=== PATIENT | female | born 1985 | race Caucasian/White ===

== ENCOUNTER 2018-09-24 21:01 | Emergency (ER) | payer BC ==
[~2018-09-24] VITALS: Ht 154.9 cm; Wt 77.4 kg
[~2018-09-24 21:01] MED LIST: HYDR-4011 PO; MAG-19 PO; OMEP20CA16 PO; ONDA4TAB14 PO
[2018-09-24 21:07] VITALS: Ht 154.9 cm; Wt 77.4 kg
[2018-09-24] MEDS ORDERED: ONDANSETRON 4 MG INJ IV STA (21:45)
[2018-09-24] MEDS ORDERED: KETOROLAC 15 MG INJ IV STA (21:45)
--- NOTE | 2018-09-24 21:50 | ERD ---
ER Documentation Chief Complaint Chief Complaint L SIDED AP X'S 2 DAYS HPI Patient is a 33-year-old female with past medical history of cholecystitis with cholecystectomy presenting to the emergency department with complaints of left flank and left upper quadrant pain which she describes as stabbing for the past 1 week. The pain has worsened over the past 1 day. She states the pain is intermittent and 9/10 in severity currently. She did have 2 episodes of diarrhea 2 days ago but this is resolved. She denies any current nausea, vomiting, diarrhea, fevers, dysuria, hematuria, or other symptoms at this time. She states she has never had these symptoms in the past. ROS All systems reviewed and are negative except as per history of present illness. Medications Home Meds Active Scripts Naproxen* (Naprosyn*) 500 Mg Tablet, 500 MG PO BID PRN for PAIN AND/OR INFLAMMATION, #30 TAB Prov:TONIE BARRETO PA-C 09/24/18 Magaldrate/Simethicone* (Mylanta*) 355 Ml Susp, 30 ML PO QID PRN for GASTROINTESTINAL UPSET, #1 BOTTLE Prov:ISAURO CORRALES NP 12/01/15 Omeprazole* (Omeprazole*) 20 Mg Capsule.dr, 20 MG PO DAILY, #30 Prov:ISAURO CORRALES NP 12/01/15 Ondansetron (Ondansetron Odt) 4 Mg Tab.rapdis, 4 MG PO Q8 PRN for NAUSEA AND/OR VOMITING, #30 TAB Prov:ISAURO CORRALES NP 12/01/15 Hydrocodone/Acetaminophen ([place] 5-325 Tablet) 1 Each Tablet, 1 TAB PO Q6H PRN for PAIN, #20 TAB Prov:ISAURO CORRALES NP 12/01/15 Reported Medications [none] Unknown Strength No Conflict Check 12/01/15 Allergies Allergies: Coded Allergies: No Known Allergy (Verified , 05/04/13) PMhx/Soc Medical and Surgical Hx: pt denies Medical Hx Anesthesia Reaction: No Hx Neurological Disorder: No Hx Respiratory Disorders: No Hx Cardiac Disorders: No Hx Psychiatric Problems: No Hx Miscellaneous Medical Probl: No Hx Alcohol Use: No Hx Substance Use: No Hx Tobacco Use: No FmHx Family History: No diabetes Physical Exam Vitals Vital Signs Date Temp Pulse Resp B/P (MAP) Pulse Ox O2 O2 Flow FiO2 Time Delivery Rate 09/25/18 98.2 64 16 100/60 100 Room Air 00:14 (73) 09/24/18 98.2 79 18 135/79 97 21:07 (97) Physical Exam Const: No acute distress Head: Atraumatic Eyes: Normal Conjunctiva ENT: Normal External Ears, Nose and Mouth. Neck: Full range of motion. No meningismus. Resp: Clear to auscultation bilaterally Cardio: Regular rate and rhythm, no murmurs Abd: Soft, subjective tenderness to palpation of the left upper quadrant, negative Thomson sign, no McBurney's point tenderness, no rebound tenderness or guarding, non distended. Normal bowel sounds Skin: No petechiae or rashes Back: No midline tenderness. There is tenderness to the left flank. Ext: No cyanosis, or edema Neur: Awake and alert Psych: Normal Mood and Affect Result Diagram: 09/24/18215809/24/182158 Results 24 hrs Laboratory Tests Test 09/24/18 21:58 09/24/18 21:59 POC Beta HCG, Qualitative NEGATIVE White Blood Count 8.8 10^3/ul Red Blood Count 4.38 10^6/ul Hemoglobin 12.6 g/dl Hematocrit 37.9 % Mean Corpuscular Volume 86.5 fl Mean Corpuscular Hemoglobin 28.8 pg Mean Corpuscular Hemoglobin Concent 33.2 g/dl Red Cell Distribution Width 13.4 % Platelet Count 274 10^3/UL Mean Platelet Volume 10.0 fl Immature Granulocytes % 0.200 % Neutrophils % 65.7 % Lymphocytes % 26.5 % Monocytes % 5.8 % Eosinophils % 1.3 % Basophils % 0.5 % Nucleated Red Blood Cells % 0.0 /100WBC Immature Granulocytes # 0.020 10^3/ul Neutrophils # 5.8 10^3/ul Lymphocytes # 2.3 10^3/ul Monocytes # 0.5 10^3/ul Eosinophils # 0.1 10^3/ul Basophils # 0.0 10^3/ul Nucleated Red Blood Cells # 0.0 10^3/ul Prothrombin Time 13.1 Sec Prothrombin Time Ratio 1.0 INR International Normalized Ratio 0.98 Activated Partial Thromboplast Time 29.3 Sec Urine Color YELLOW Urine Clarity CLEAR Urine pH 6.0 Urine Specific [place] 1.018 Urine Ketones NEGATIVE mg/dL Urine Nitrite NEGATIVE mg/dL Urine Bilirubin NEGATIVE mg/dL Urine Urobilinogen NEGATIVE mg/dL Urine Leukocyte Esterase NEGATIVE [place]/ul Urine Microscopic RBC 2 /HPF Urine Microscopic WBC 0 /HPF Urine Squamous Epithelial Cells FEW /HPF Urine Hemoglobin 2+ mg/dL Urine Glucose NEGATIVE mg/dL Urine Total Protein NEGATIVE mg/dl Sodium Level 140 mmol/L Potassium Level 4.2 mmol/L Chloride Level 107 mmol/L Carbon Dioxide Level 26 mmol/L Anion Gap 7 Blood Urea Nitrogen 17 mg/dl Creatinine 0.84 mg/dl Est Glomerular Filtrat Rate mL/min > 60 mL/min Glucose Level 93 mg/dl Calcium Level 9.3 mg/dl Total Bilirubin 0.4 mg/dl Direct Bilirubin 0.00 mg/dl Indirect Bilirubin 0.4 mg/dl Aspartate Amino Transf (AST/SGOT) 19 IU/L Alanine Aminotransferase (ALT/SGPT) 22 IU/L Alkaline Phosphatase 45 IU/L Total Protein 7.8 g/dl Albumin 4.1 g/dl Globulin 3.70 g/dl Albumin/Globulin Ratio 1.10 Lipase 94 U/L Current Medications Medications Dose Sig/Gem Start Time Status Last (Trade) Ordered Route PRN Stop Time Admin Dose Reason Admin Ondansetron 4 mg ONCE STAT 09/24/18 DC 09/24/18 HCl (Zofran IV 21:45 09/24/18 22:03 Inj) 21:46 Ketorolac 15 mg ONCE STAT 09/24/18 DC 09/24/18 Tromethamine IV 21:45 09/24/18 22:03 (Toradol) 21:46 [place] [id number] Radiology Main Line: [phone] DIAGNOSTIC IMAGING REPORT Patient: ELLEN CHIANG : 1985 Age: 33 Sex: F [id number] DOS: 09/24/18 2145 Ordering MD: TONIE BARRETO PA-C Location: [facility] Room/Bed: PROCEDURE: CT abdomen and pelvis without contrast. CLINICAL INDICATION: Abdominal Pain TECHNIQUE: CT scan of the abdomen and pelvis without oral contrast was performed and is reconstructed at 2.5 mm contiguous axial intervals from the dome of the diaphragm to the inferior pubic rami.. The patient was scanned without intravenous contrast. Sagittal and coronal reformatted images were obtained from the axial source images. The calculated radiation dose measures 632 mGy centimeters. The CTDI measures 11.1 mGy. Individualized dose optimization technique was used for the performance of this exam. This included 1. Automated exposure control. 2. Adjustment of the mA and / or kV according to the patient's size. 3. Use of iterative reconstructed technique. DICOM images are available. COMPARISON: Abdominal ultrasound December 01, 2015 FINDINGS: The lung bases are clear of any infiltrate or nodule. No effusion is seen. The liver is of normal size, contour and attenuation with no mass or ductal dilatation. Gallbladder has been removed. No splenic, adrenal or pancreatic abnormalities present. Kidneys are of normal size and contour. No hydronephrosis, calculus or mass Is seen. Ureters are of normal course and caliber with no stone. No bladder mass or stone is present. Uterus and ovaries appear normal. There is no aneurysm. No adenopathy is present. No bowel mass or obstruction is present. The appendix is normal. No phlegm on, ascites or pneumoperitoneum is visualized. The osseous structures are intact. IMPRESSION: No evidence of urolithiasis, obstructive uropathy, diverticulitis or appendicitis. Post cholecystectomy. .Alxe Delacruz MD, MD Date Time Electronically viewed and signed by .Alex Delacruz MD, on 09/24/2018 23:18 .A/ CC: TONIE BARRETO PA-C [id number] Procedures/MDM 33-year-old female presented to the emergency department complaining of left flank and left upper quadrant abdominal pain. Patient was immediately placed on stretcher. She was administered IV Toradol and IV Zofran with improvement of her symptoms. She remained hemodynamically stable throughout her ED course with no new complaints. CBC: no e/o of systemic infection or severe anemia CMP: no e/o severe acidosis, alkalosis, renal failure, diabetic ketoacidos is, liver disease Lipase: no e/o pancreatitis PT/INR: normal coagulation Urine: no e/o acute infection or hematuria Medical decision making: History, physical examination, work-up most consistent with abdominal muscle strain versus spasm. No evidence to suggest acute cholecystitis, acute sinusitis, bowel obstruction, toxic megacolon, other acute surgical abdomen. Patient's gastrointestinal symptoms have stabilized while in the department. No evidence of severe dehydration, sepsis, or surgical abdomen. Extensive discussion with family and patient that occult disease cannot be ruled out. 8 hour recheck for repeat abdominal exam is planned. No evidence of life-threatening pathology at time of discharge. Pt/family in agreement with discharge plan/diagnosis. Pt/family advised to return immediately with any new or worsening symptoms. Follow-up with primary care physician within the next 1-2 days. Patient's blood pressure was elevated (>120/80) but appears stable without ev idence of hypertension emergency or urgency. The patient is to follow-up and pursue outpatient monitoring and therapy with their primary care physician within 1 week and return immediately if they have any new, worsening, or concerning symptoms. Disclaimer: Inadvertent spelling and grammatical errors are likely due to EHR/dictation software use and do not reflect on the overall quality of patient care. Also, please note that the electronic time recorded on this note does not necessarily reflect the actual time of the patient encounter. Departure Diagnosis: Primary Impression: Abdominal pain Condition: Fair Patient Instructions: Abdominal Pain Additional Instructions: Follow up with your PCP within the next 1-3 days for a repeat evaluation. If you require a referral to a specialist, your Primary Care Provider may be able to provide this for you. In most patient cases, a referral is not required. If you have further questions regarding this matter, please ask your Primary Care Provider. Return the the emergency department immediately if symptoms worsen or change. If you have any questions regarding medications, ask your pharmacist or us before you leave. If any adverse reactions, occur while taking your medications, discontinue the treatment and return to the emergency department immediately. If any new or worsening symptoms, uncontrolled fevers, or other unexplained symptoms occur, return to the emergency department immediately. Take your medications as directed, and complete the entire course of treatment. TONIE BARRETO PA-C Sep 24, 2018 21:49
[2018-09-24] MEDS ORDERED: NAPR-985 PO (23:35)
[2018-09-25 00:14] VITALS: BP 100/60; PULSE 64; RESP 16
== END 2018-09-25 00:14 | disposition home or self-care (01) ==
LOC: FTE 21:01
DX: R10.12 Left upper quadrant pain (principal)
CPT/HCPCS: 36415; 74176; 80053; 81001; 81025; 83690; 85025; 85610; 85730; 96374; 96375; 99285; J1885; J2405